=== PATIENT | male | born 1995 | race Caucasian/White ===

== ENCOUNTER 2018-07-03 15:31 | Emergency (ER) | payer OTHER, SELFPAY ==
[2018-07-03 15:36] VITALS: BP 145/89; PULSE 79; RESP 14; TEMP 36.9; O2SAT 99
--- NOTE | 2018-07-03 15:38 | DI.RAD.S_ITS ---
PROCEDURE: XR WRIST LT MIN 3V INDICATIONS: slip/fall, lt wrist pain TECHNIQUE: 4 views of the wrist were acquired. COMPARISON: None. FINDINGS: Bones: No fractures or dislocations. No suspicious bony lesions. Scaphoid view: Scaphoid is grossly intact. Soft tissues: No suspicious soft tissue calcifications. IMPRESSION: No gross acute left wrist fracture or dislocation. Dictated by: Bruce Fabian M.D. on 07/03/2018 at 15:51 Approved by: Bruce Fabian M.D. on 07/03/2018 at 15:53
--- NOTE | 2018-07-03 16:00 | ED.UPPEXIN ---
HPI - Extremity Injury (Upper) <HEYDI Jorge - Last Filed: 07/03/18 21:55> General Chief Complaint: Extremity Injury, Upper Stated Complaint: Fall- hurt L wrist and L ankle Time Seen by Provider: 07/03/18 15:32 Source: patient Mode of arrival: ambulatory Limitations: no limitations History of Present Illness HPI narrative: 22-year-old healthy male who is an everyday smoker complaint of pain into his left wrist area. He states that he fell down a few steps last night causing pain to the left wrist. He also states that he has mild pain to the left ankle but he is not concerned about that at this time and does not desire any workup for that. He denies any head injury. No loss of conscious. No neck pain. He denies any other injuries or concerns at this time. Increased pain with motion of the left wrist. Related Data Home Medications Medication Instructions Recorded Confirmed No Known Home Medications 07/03/18 07/03/18 Allergies Allergy/AdvReac Type Severity Reaction Status Date / Time No Known Drug Allergies Allergy Verified 07/03/18 15:37 Review of Systems <HEYDI Jorge - Last Filed: 07/03/18 21:55> Constitutional Denies chills, Denies fever(s), Denies lethargy and Denies weakness Eyes Denies change in vision, Denies eye discharge, Denies irritation and Denies loss of vision ENT Ears, Nose, Mouth, and Throat: Denies change in voice, Denies neck pain and Denies sore throat Cardiovascular Denies chest pain, Denies irregular heart rhythm, Denies lightheadedness, Denies palpitations, Denies dyspnea, Denies dyspnea on exertion and Denies orthopnea Respiratory Denies cough, Denies dyspnea, Denies dyspnea on exertion and Denies wheezing Gastrointestinal Gastrointestinal: Denies abdominal pain, Denies change in bowel habits, Denies diarrhea, Denies nausea and Denies vomiting Genitourinary Denies hematuria, Denies flank pain, Denies urinary incontinence and Denies urinary urgency Musculoskeletal Denies neck pain Comments: Left wrist pain Integumentary/Breasts Denies pruritus, Denies erythema, Denies rash and Denies wounds Neurologic Denies confusion, Denies loss of vision and Denies weakness Psychiatric Denies anxiety, Denies confusion, Denies depression, Denies homicidal ideation and Denies suicidal ideation Endocrine Denies palpitations Hematologic/Lymphatic Denies easy bruising Allergic/Immunologic Denies wheezing Exam <HEYDI Jorge - Last Filed: 07/03/18 21:55> Initial Vital Signs Initial Vital Signs: Vital Signs Temperature 98.5 F 07/03/18 15:36 Pulse Rate 79 07/03/18 15:36 Respiratory Rate 14 07/03/18 15:36 Blood Pressure 145/89 H 07/03/18 15:36 Pulse Oximetry 99 07/03/18 15:36 Const General: cooperative and well developed Nutritional Appearance: well nourished Orientation: alert, awake, oriented x3 and not confused HENME Mouth: oral mucosae normal and moist mucous membranes Eyes Conjunctivae: conjunctivae normal Sclera: sclerae normal Pupils: PERRL EOM: EOM intact bilaterally Resp Effort & Inspection: normal respiratory effort, able to speak in complete sentences, no respiratory distress and no use of accessory muscles Auscultation: clear to auscultation bilaterally, no rales, no rhonchi and no wheezes Cardio Rate: regular rate Rhythm: regular rhythm Heart Sounds: no click, no gallops, no murmurs and no rubs Pulses: normal peripheral pulses Skin General: no rashes or lesions noted, No jaundice and No petechiae Neuro General: alert, oriented x3, gait normal and no focal motor deficits Speech: speech normal Extrem Other: Left wrist with no signs of trauma. No ecchymosis. No swelling. Distal sensation is intact. Distal cap refill is intact. Distal range of motion is intact. No anatomical snuffbox tenderness. <Ladonna Mckinnon DO - Last Filed: 07/04/18 18:31> Initial Vital Signs Initial Vital Signs: Vital Signs Temperature 98.5 F 07/03/18 15:36 Pulse Rate 79 07/03/18 15:36 Respiratory Rate 14 07/03/18 15:36 Blood Pressure 145/89 H 07/03/18 15:36 Pulse Oximetry 99 07/03/18 15:36 Course <HEYDI Jorge - Last Filed: 07/03/18 21:55> Orders Ordered: ED Orders 07/03/18 15:38 XR wrist LT min 3V Stat Vital Signs - 8 hr 07/03/18 15:36 Temperature 98.5 F Pulse Rate 79 Respiratory Rate 14 Blood Pressure 145/89 H Pulse Oximetry 99 <Ladonna Mckinnon DO - Last Filed: 07/04/18 18:31> Orders Ordered: ED Orders 07/03/18 15:38 XR wrist LT min 3V Stat Vital Signs - 8 hr 07/03/18 15:36 Temperature 98.5 F Pulse Rate 79 Respiratory Rate 14 Blood Pressure 145/89 H Pulse Oximetry 99 MDM - Extremity Injury (Upper) <HEYDI Jorge - Last Filed: 07/03/18 21:55> Imaging Data Left wrist : Radiologist's impression: XRay Report Signed Patient: Behzad Mills MR#: [id number] : 1995 Acct:[id number] Age/Sex: 22 / M Date of Service: 07/03/18 Loc: ED Accession Number: [id number] Procedure: XR wrist LT min 3V Ordering Provider: Eladio Webster PROCEDURE: XR WRIST LT MIN 3V INDICATIONS: slip/fall, lt wrist pain TECHNIQUE: 4 views of the wrist were acquired. COMPARISON: None. FINDINGS: Bones: No fractures or dislocations. No suspicious bony lesions. Scaphoid view: Scaphoid is grossly intact. Soft tissues: No suspicious soft tissue calcifications. IMPRESSION: No gross acute left wrist fracture or dislocation. Dictated by: Bruce Fabian M.D. on 07/03/2018 at 15:51 Approved by: Bruce Fabian M.D. on 07/03/2018 at 15:53 [facility] Narrative Medical decision making narrative: X-ray of the left wrist was obtained was negative for any acute fractures. Signs symptoms presents sprain to the left wrist. He is placed in a wrist splint for comfort and support. [id number] Tylenol or Motrin as needed for any discomfort. Rest area. Follow up with primary care provider. For any worsening symptoms return to the emergency room. Repeat films in 7-10 days if still painful to the left wrist Discharge Plan Departure Patient Disposition: Home Clinical Impression: Left wrist sprain Discharge Date/Time: 07/03/18 16:25 Interventions: ED Discharge Assessment Last Done: 07/03/18 16:34 Instructions: DI for Wrist Sprain Activity Restrictions/Additional Instructions: X-ray of the left wrist was obtained was negative for any acute fractures. Signs symptoms presents sprain to the left wrist. You have been placed in a wrist splint for comfort and support use as directed. [id number] Tylenol or Motrin as needed for any discomfort. Rest area. Follow up with primary care provider. For any worsening symptoms return to the emergency room. Repeat films in 7-10 days if still painful to the left wrist Prescriptions: No Action No Known Home Medications RF: 0 Referrals: [facility] [Provider Group] Stand Alone Forms: Work Release Note <Ladonna Mckinnon DO - Last Filed: 07/04/18 18:31> Cosign ED Attending Cosignature Attestation: I was immediately available in the department for consultation. This documentation has been reviewed and I agree with assessment and plan. Supervised by Ladonna Mckinnon DO
--- NOTE | 2018-07-03 16:09 | ED_ITS ---
HPI - Extremity Injury (Upper) <HEYDI Jorge - Last Filed: 07/03/18 21:55> General Chief Complaint: Extremity Injury, Upper Stated Complaint: Fall- hurt L wrist and L ankle Time Seen by Provider: 07/03/18 15:32 Source: patient Mode of arrival: ambulatory Limitations: no limitations History of Present Illness HPI narrative: 22-year-old healthy male who is an everyday smoker complaint of pain into his left wrist area. He states that he fell down a few steps last night causing pain to the left wrist. He also states that he has mild pain to the left ankle but he is not concerned about that at this time and does not desire any workup for that. He denies any head injury. No loss of conscious. No neck pain. He denies any other injuries or concerns at this time. Increased pain with motion of the left wrist. Related Data Home Medications Medication Instructions Recorded Confirmed No Known Home Medications 07/03/18 07/03/18 Allergies Allergy/AdvReac Type Severity Reaction Status Date / Time No Known Drug Allergies Allergy Verified 07/03/18 15:37 Review of Systems <HEYDI Jorge - Last Filed: 07/03/18 21:55> Constitutional Denies chills, Denies fever(s), Denies lethargy and Denies weakness Eyes Denies change in vision, Denies eye discharge, Denies irritation and Denies loss of vision ENT Ears, Nose, Mouth, and Throat: Denies change in voice, Denies neck pain and Denies sore throat Cardiovascular Denies chest pain, Denies irregular heart rhythm, Denies lightheadedness, Denies palpitations, Denies dyspnea, Denies dyspnea on exertion and Denies orthopnea Respiratory Denies cough, Denies dyspnea, Denies dyspnea on exertion and Denies wheezing Gastrointestinal Gastrointestinal: Denies abdominal pain, Denies change in bowel habits, Denies diarrhea, Denies nausea and Denies vomiting Genitourinary Denies hematuria, Denies flank pain, Denies urinary incontinence and Denies urinary urgency Musculoskeletal Denies neck pain Comments: Left wrist pain Integumentary/Breasts Denies pruritus, Denies erythema, Denies rash and Denies wounds Neurologic Denies confusion, Denies loss of vision and Denies weakness Psychiatric Denies anxiety, Denies confusion, Denies depression, Denies homicidal ideation and Denies suicidal ideation Endocrine Denies palpitations Hematologic/Lymphatic Denies easy bruising Allergic/Immunologic Denies wheezing Exam <HEYDI Jorge - Last Filed: 07/03/18 21:55> Initial Vital Signs Initial Vital Signs: Vital Signs Temperature 98.5 F 07/03/18 15:36 Pulse Rate 79 07/03/18 15:36 Respiratory Rate 14 07/03/18 15:36 Blood Pressure 145/89 H 07/03/18 15:36 Pulse Oximetry 99 07/03/18 15:36 Const General: cooperative and well developed Nutritional Appearance: well nourished Orientation: alert, awake, oriented x3 and not confused HENVT Mouth: oral mucosae normal and moist mucous membranes Eyes Conjunctivae: conjunctivae normal Sclera: sclerae normal Pupils: PERRL EOM: EOM intact bilaterally Resp Effort & Inspection: normal respiratory effort, able to speak in complete sentences, no respiratory distress and no use of accessory muscles Auscultation: clear to auscultation bilaterally, no rales, no rhonchi and no wheezes Cardio Rate: regular rate Rhythm: regular rhythm Heart Sounds: no click, no gallops, no murmurs and no rubs Pulses: normal peripheral pulses Skin General: no rashes or lesions noted, No jaundice and No petechiae Neuro General: alert, oriented x3, gait normal and no focal motor deficits Speech: speech normal Extrem Other: Left wrist with no signs of trauma. No ecchymosis. No swelling. Distal sensation is intact. Distal cap refill is intact. Distal range of motion is intact. No anatomical snuffbox tenderness. <Ladonna Mckinnon DO - Last Filed: 07/04/18 18:31> Initial Vital Signs Initial Vital Signs: Vital Signs Temperature 98.5 F 07/03/18 15:36 Pulse Rate 79 07/03/18 15:36 Respiratory Rate 14 07/03/18 15:36 Blood Pressure 145/89 H 07/03/18 15:36 Pulse Oximetry 99 07/03/18 15:36 Course <HEYDI Jorge - Last Filed: 07/03/18 21:55> Orders Ordered: ED Orders 07/03/18 15:38 XR wrist LT min 3V Stat Vital Signs - 8 hr 07/03/18 15:36 Temperature 98.5 F Pulse Rate 79 Respiratory Rate 14 Blood Pressure 145/89 H Pulse Oximetry 99 <Ladonna Mckinnon DO - Last Filed: 07/04/18 18:31> Orders Ordered: ED Orders 07/03/18 15:38 XR wrist LT min 3V Stat Vital Signs - 8 hr 07/03/18 15:36 Temperature 98.5 F Pulse Rate 79 Respiratory Rate 14 Blood Pressure 145/89 H Pulse Oximetry 99 MDM - Extremity Injury (Upper) <HEYDI Jorge - Last Filed: 07/03/18 21:55> Imaging Data Left wrist : Radiologist's impression: XRay Report Signed Patient: Behzad Mills MR#: [id number] : 1995 Acct:[id number] Age/Sex: 22 / M Date of Service: 07/03/18 Loc: ED Accession Number: [id number] Procedure: XR wrist LT min 3V Ordering Provider: Eladio Webster PROCEDURE: XR WRIST LT MIN 3V INDICATIONS: slip/fall, lt wrist pain TECHNIQUE: 4 views of the wrist were acquired. COMPARISON: None. FINDINGS: Bones: No fractures or dislocations. No suspicious bony lesions. Scaphoid view: Scaphoid is grossly intact. Soft tissues: No suspicious soft tissue calcifications. IMPRESSION: No gross acute left wrist fracture or dislocation. Dictated by: Bruce Fabian M.D. on 07/03/2018 at 15:51 Approved by: Bruce Fabian M.D. on 07/03/2018 at 15:53 [facility] Narrative Medical decision making narrative: X-ray of the left wrist was obtained was negative for any acute fractures. Signs symptoms presents sprain to the left wrist. He is placed in a wrist splint for comfort and support. Over-the- counter Tylenol or Motrin as needed for any discomfort. Rest area. Follow up with primary care provider. For any worsening symptoms return to the emergency room. Repeat films in 7-10 days if still painful to the left wrist Discharge Plan Departure Patient Disposition: Home Clinical Impression: Left wrist sprain Discharge Date/Time: 07/03/18 16:25 Interventions: ED Discharge Assessment Last Done: 07/03/18 16:34 Instructions: DI for Wrist Sprain Activity Restrictions/Additional Instructions: X-ray of the left wrist was obtained was negative for any acute fractures. Signs symptoms presents sprain to the left wrist. You have been placed in a wrist splint for comfort and support use as directed. [id number] Tylenol or Motrin as needed for any discomfort. Rest area. Follow up with primary care provider. For any worsening symptoms return to the emergency room. Repeat films in 7-10 days if still painful to the left wrist Prescriptions: No Action No Known Home Medications RF: 0 Referrals: [facility] [Provider Group] Stand Alone Forms: Work Release Note <Ladonna Mckinnon DO - Last Filed: 07/04/18 18:31> Cosign ED Attending Cosignature Attestation: I was immediately available in the department for consultation. This documentation has been reviewed and I agree with assessment and plan. Supervised by Ladonna Mckinnon DO
== END 2018-07-03 16:26 | disposition home or self-care (01) ==
PROVIDERS: Emergency Provider Nurse Practitioner Family
DX: S63.502A Unspecified sprain of left wrist, initial encounter (principal); W10.8XXA Fall (on) (from) other stairs and steps, initial encounter
CPT/HCPCS: 73110; 99282; 99283

== ENCOUNTER 2021-01-27 12:23 | Emergency (ER) | payer SELFPAY ==
[2021-01-27 12:33] VITALS: BP 147/69; PULSE 80; RESP 18; TEMP 36.6; O2SAT 96; BMI 37.3
--- NOTE | 2021-01-27 12:39 | DI.RAD.S_ITS ---
PROCEDURE: XR CHEST 2V INDICATIONS: cough/congestion TECHNIQUE: 2 views of the chest were acquired. COMPARISON: None. FINDINGS: Surgical changes and devices: None. Lungs and pleura: Lungs are clear. No pleural effusions or pneumothorax. Mediastinum: Mediastinal contours are normal. Heart size is normal. Bones and chest wall: No suspicious bony abnormalities. Soft tissues appear unremarkable. IMPRESSION: No acute cardiopulmonary disease. Dictated by: Miladis Dukes M.D. on 01/27/2021 at 13:05 Approved by: Miladis Dukes M.D. on 01/27/2021 at 13:06
[2021-01-27 13:50] LABS: COVID19 -Nasal RAPID Negative (Negative)
== END 2021-01-27 15:16 | disposition left against medical advice (07) ==
PROVIDERS: Emergency Provider Emergency Medicine
DX: R05 Cough (principal); Z20.822 Contact with and (suspected) exposure to COVID-19
CPT/HCPCS: 71046; 87635; 99281; C9803

== ENCOUNTER 2022-04-01 11:18 | Emergency (ER) | payer SELFPAY ==
[2022-04-01 11:54] VITALS: BP 121/88; PULSE 82; RESP 18; TEMP 35.8; O2SAT 95; BMI 34.2
== END 2022-04-01 16:03 | disposition left against medical advice (07) ==
PROVIDERS: Emergency Provider Emergency Medicine
DX: R50.9 Fever, unspecified (principal)
CPT/HCPCS: 87070; 87880; 99282